=== PATIENT | female | born 1950 | race Caucasian/White ===

== ENCOUNTER 2017-05-04 19:56 | Inpatient (IN) | payer MEDICARE, BC, OTHER ==
[~2017-05-04] VITALS: Ht 162.6 cm; Wt 73.2 kg
[~2017-05-04 19:56] MED LIST: CARV3.12 PO; LEVO75TA3 PO; LISI10TA3 PO; LITH300C2 PO; METF850T PO; OMEP40CA2 PO; SITA50 PO; VENL75XR PO
[2017-05-04 20:07] VITALS: BP 186/84; PULSE 89; TEMP 99.4
--- NOTE | 2017-05-04 20:07 | PD ---
HPI Chief Complaint: psychiatric symptoms Time Seen by Provider: 20:07 Travel History International Travel<30 days: No Contact w/Intl Traveler<30days: No History of Present Illness HPI 66 YO F with PMH of bipolar disorder presents to the ED under Yanes act for psychiatric evaluation. Per the Yanes act paper work the patient made a suicidal statement and was found to have a large quantity of NyQuil and Tylenol PM in her purse. On presentation the patient denies suicidal or homicidal ideation. She states that she had a "bad fight" with her 2 nights ago and left the state [place]. She states that she took the NyQuil and Tylenol PM with her because she had some passive ideas of suicide. She states that while she was staying alone she realizes that "all of my problems are of my own making and I need to confront them." She endorses previous psychiatric hospitalization and previous suicide attempt. She endorses 1 month history of low back pain but denies other somatic complaints on presentation. She denies any attempted OD today, illicit drug use, alcohol use or cigarette smoking. PFSH Past Medical History Anxiety: Yes Depression: Yes Cancer: No Cardiovascular Problems: No High Cholesterol: Yes Diabetes: Yes Endocrine: Yes Genitourinary: No Hepatitis: No Hiatal Hernia: No Hypertension: Yes Immune Disorder: No Musculoskeletal: No Neurologic: No Psychiatric: Yes (depression) Reproductive: No Respiratory: No Migraines: Yes Thyroid Disease: Yes Past Surgical History Abdominal Surgery: No AICD: No Cardiac Surgery: No Ear Surgery: No Endocrine Surgery: No Eye Surgery: No Genitourinary Surgery: No Gynecologic Surgery: Yes Joint Replacement: No Oral Surgery: No Pacemaker: No Thoracic Surgery: No Social History Alcohol Use: No Tobacco Use: No Substance Use: No Allergies-Medications (Allergen,Severity, Reaction): Coded Allergies: No Known Allergies (Unverified , 07/04/15) Reported Meds & Prescriptions Reported Meds & Active Scripts Active [place] Carbonate 300 Mg Cap 300 Mg PO 1 AM 2 HS Metformin (Metformin HCl) 850 Mg Tab 850 Mg PO DAILY With a meal Reported Januvia (Sitagliptin Phosphate) 50 Mg Tab 50 Mg PO DAILY Omeprazole 40 Mg Cap 40 Mg PO DAILY Lisinopril 10 Mg Tab 10 Mg PO TID PRN Levothyroxine (Levothyroxine Sodium) 75 Mcg Tab 75 Mcg PO DAILY Carvedilol 3.125 Mg Tab 3.125 Mg PO BID Review of Systems Except as stated in HPI: all other systems reviewed are Neg Physical Exam Narrative GENERAL: Well-nourished, well-developed pleasant white female in no acute distress. PSYCHIATRIC: No delusional thought processes. No hallucinations. Occasionally tearful. SKIN: Focused skin assessment warm/dry. HEAD: Normocephalic. EYES: No scleral icterus. No injection or drainage. NECK: Supple, trachea midline. No JVD or lymphadenopathy. CARDIOVASCULAR: Regular rate and rhythm without murmurs, gallops, or rubs. RESPIRATORY: Breath sounds clear and equal bilaterally. No accessory muscle use. GASTROINTESTINAL: Abdomen soft, non-tender, nondistended. Active bowel sounds. MUSCULOSKELETAL: No cyanosis, or edema. BACK: Nontender without obvious deformity. No CVA tenderness. Data Data Last Documented VS Vital Signs Date Time Temp Pulse Resp B/P Pulse Ox O2 Delivery O2 Flow Rate FiO2 05/05/17 06:11 69 18 172/79 95 Room Air 05/05/17 02:10 98.3 Orders Complete Blood Count With Diff (05/04/17 20:20) Comprehensive Metabolic Panel (05/04/17 20:20) Urinalysis - C+S If Indicated (05/04/17 20:20) Psych Screen (05/04/17 20:20) Drug Screen, Random Urine (05/04/17 20:20) Alcohol (Ethanol) (05/04/17 20:20) Tylenol (Acetaminophen) (05/04/17 20:36) Salicylates (Aspirin) (05/04/17 20:36) Diet Diabetic (05/05/17 Breakfast) Labs Laboratory Tests Test 05/04/17 05/04/17 20:45 21:00 White Blood Count 7.0 TH/MM3 Red Blood Count 4.54 MIL/MM3 Hemoglobin 13.3 GM/DL Hematocrit 39.6 % Mean Corpuscular Volume 87.1 FL Mean Corpuscular Hemoglobin 29.3 PG Mean Corpuscular Hemoglobin 33.7 % Concent Red Cell Distribution Width 13.4 % Platelet Count 224 TH/MM3 Mean Platelet Volume 9.3 FL Neutrophils (%) (Auto) 52.1 % Lymphocytes (%) (Auto) 37.1 % Monocytes (%) (Auto) 7.3 % Eosinophils (%) (Auto) 2.2 % Basophils (%) (Auto) 1.3 % Neutrophils # (Auto) 3.6 TH/MM3 Lymphocytes # (Auto) 2.6 TH/MM3 Monocytes # (Auto) 0.5 TH/MM3 Eosinophils # (Auto) 0.2 TH/MM3 Basophils # (Auto) 0.1 TH/MM3 CBC Comment DIFF FINAL Differential Comment Sodium Level 139 MEQ/L Potassium Level 3.3 MEQ/L Chloride Level 105 MEQ/L Carbon Dioxide Level 26.5 MEQ/L Anion Gap 8 MEQ/L Blood Urea Nitrogen 13 MG/DL Creatinine 0.92 MG/DL Estimat Glomerular Filtration 61 ML/MIN Rate Random Glucose 238 MG/DL Calcium Level 9.0 MG/DL Total Bilirubin 0.3 MG/DL Aspartate Amino Transf 39 U/L (AST/SGOT) Alanine Aminotransferase 72 U/L (ALT/SGPT) Alkaline Phosphatase 61 U/L Total Protein 7.3 GM/DL Albumin 3.7 GM/DL Acetaminophen Level LESS THAN 2.0 MCG/ML Ethyl Alcohol Level LESS THAN 3 MG/DL Salicylates Level LESS THAN 1.7 MG/DL Urine Color YELLOW Urine Turbidity CLEAR Urine pH 5.5 Urine Specific [place] 1.015 Urine Protein TRACE mg/dL Urine Glucose (UA) 300 mg/dL Urine Ketones NEG mg/dL Urine Occult Blood TRACE Urine Nitrite NEG Urine Bilirubin NEG Urine Urobilinogen LESS THAN 2.0 MG/DL Urine Leukocyte Esterase SMALL Urine RBC 2 /hpf Urine WBC 4 /hpf Urine Squamous Epithelial <1 /hpf Cells Microscopic Urinalysis Comment CULT NOT INDICATED Urine Opiates Screen NEG Urine Barbiturates Screen NEG Urine Amphetamines Screen NEG Urine Benzodiazepines Screen NEG Urine Cocaine Screen NEG Urine Cannabinoids Screen NEG MDM Medical Decision Making Medical Screen Exam Complete: Yes Emergency Medical Condition: Yes Differential Diagnosis Adjustment disorder versus anxiety versus bipolar versus depression versus dementia versus electrolyte disorder versus malingering versus mood disorder versus ODD versus psychosis versus PTSD versus schizophrenia versus schizoaffective disorder versus substance-induced mood disorder versus other Narrative Course 66 YO F with PMH of bipolar disorder presents to the ED under [employer] act for psychiatric evaluation. Per the [employer] act paper work the patient made a suicidal statement and was found to have a large quantity of NyQuil and Tylenol PM in her purse. On presentation the patient denies suicidal or homicidal ideation. She states that she had a "bad fight" with her 2 nights ago and left the state Hotel. She states that she took the NyQuil and Tylenol PM with her because she had some passive ideas of suicide. She states that while she was staying alone she realizes that "all of my problems are of my own making and I need to confront them." She endorses previous psychiatric hospitalization and previous suicide attempt. She endorses 1 month history of low back pain but denies other somatic complaints on presentation. She denies any attempted OD today, illicit drug use, alcohol use or cigarette smoking. Vitals reviewed. Physical exam unremarkable. Reviewed the patient's record and she has previous suicide attempts by acetaminophen. Yanes act to stand. Lab work is unremarkable. The patient is medically cleared for psychiatric evaluation. Mirian Lucas May 04, 2017 20:07
[2017-05-04 21:13] LABS: AUTOMATED NEUTROPHIL # 3.6 TH/MM3 (1.8-7.7); BASOPHIL # 0.1 TH/MM3 (0-0.2); BASOPHIL % 1.3 % (0.0-2.0); EOSINOPHIL # 0.2 TH/MM3 (0-0.4); EOSINOPHIL % 2.2 % (0.0-4.0); HEMATOCRIT 39.6 % (35.0-46.0); HEMO FLAGS DIFF FINAL; LYMPH % 37.1 % (9.0-44.0); LYMPHOCYTE # 2.6 TH/MM3 (1.0-4.8); MEAN CELL VOLUME 87.1 FL (80.0-100.0); MEAN CORPUSCULAR HEMOGLOBIN 29.3 PG (27.0-34.0); MEAN CORPUSCULAR HGB CONC 33.7 % (32.0-36.0); MONO % 7.3 % (0.0-8.0); NEUT % 52.1 % (16.0-70.0); PLATELET COUNT 224 TH/MM3 (150-450); RED BLOOD COUNT 4.54 MIL/MM3 (4.00-5.30); RED CELL DISTRIBUTION WIDTH 13.4 % (11.6-17.2)
[2017-05-04 21:26] LABS: ALT (GPT) 72 U/L (10-53); ANION GAP 8 MEQ/L (5-15); AST (GOT) 39 U/L (15-37); BICARBONATE 26.5 MEQ/L (21.0-32.0); BLOOD UREA NITROGEN 13 MG/DL (7-18); CHLORIDE 105 MEQ/L (98-107); GLOMERULAR FILTRATION RATE 61 ML/MIN (>89); POTASSIUM 3.3 MEQ/L (3.5-5.1); SODIUM (NA) 139 MEQ/L (136-145)
[2017-05-04 21:29] LABS: ALKALINE PHOSPHATASE 61 U/L (45-117); TOTAL BILIRUBIN ADULT 0.3 MG/DL (0.2-1.0)
[2017-05-04 21:41] LABS: BLOOD, URINE TRACE (NEG); GLUCOSE,URINE 300 mg/dL (NEG); KETONE, URINE NEG (NEG); NITRITE,URINE NEG (NEG); PH, URINE 5.5 (5.0-8.5); SQUAMOUS EPITHELIAL CELL URINE <1 /hpf (0-5); URINE COLOR YELLOW (YELLW/STRAW)
[2017-05-04 21:44] LABS: COMMENT (UR) CULT NOT INDICATED; CULTURE IF INDICATED CULT NOT INDICATED
[2017-05-04 21:50] LABS: AMPHETAMINE, URINE NEG (NEG); BARBITURATES, URINE NEG (NEG); COCAINE, URINE NEG (NEG)
[2017-05-04 22:59] VITALS: BP 176/81; PULSE 79; RESP 18; O2SAT 97
[2017-05-05 02:10] VITALS: BP 175/79; PULSE 76; RESP 18; TEMP 98.3; O2SAT 96
[2017-05-05 06:11] VITALS: BP 172/79; PULSE 69; RESP 18; O2SAT 95
[2017-05-05] MEDS ORDERED: LORazepam 1 MG TAB PO PRN (09:45)
[2017-05-05] MEDS ORDERED: ALUMINUM/MAGNESIUM/SIMETH 30 ML CUP PO PRN (09:45)
[2017-05-05] MEDS ORDERED: ACETAMINOPHEN 325 MG TAB PO PRN (09:45)
[2017-05-05] MEDS ORDERED: LORazepam 0.5 MG TAB PO PRN (09:45)
[2017-05-05] MEDS ORDERED: LISINOPRIL 10 MG TAB PO PRN (09:45)
[2017-05-05] MEDS ORDERED: MAGNESIUM HYDROXIDE SUSP 30 ML CUP PO PRN (09:45)
[2017-05-05] MEDS ORDERED: LORazepam 2 MG/ML VIAL IM PRN ×2 (09:45)
--- NOTE | 2017-05-05 09:52 | HHI.HP ---
Provisional Diagnosis Admission Date Bailey I. Major depression, recurrent Certification of Person's Competence To Provide Express and Informed Consent I have personally examined Bev Damon , a person being served at [facility] on, May 05, 2017 09:41. Express and informed consent means consent voluntarily given in writing, by a competent person, after sufficient explanation and disclosure of the subject matter involved to enable the person to make a knowing and willful decision without any element of force, fraud, deceit, duress, or other form of constraint or coercion. This person is 18 years of age or older, is not now known to be incompetent to consent to treatment with a guardian advocate, and does not have a health care surrogate or proxy currently making medical treatment decisions. I have found this person to be one of the following: [x] Competent to provide express and informed consent, as defined above, for voluntary admission to this facility and is competent to provide express and informed consent for treatment. He/she has the consistent capacity to make well reasoned, willful, and knowing decisions concerning his or her medical or mental health treatment. The person fully and consistently understands the purpose of the admission for examination/placement and is fully capable of personally exercising all rights assured [place] Incompetent to provide express and informed consent to voluntary admission, and this is incompetent to provide express and informed consent to treatment. The person must be transferred to involuntary status and a petition for a guardian advocate filed with the Circuit Court. [] Refusing to provide express and informed consent to voluntary admission but is competent to provide express and informed consent for treatment. The person must be discharged or transferred to involuntary status. Form shall be completed within 24 hours of a person's arrival at the receiving facility and filed in the clinical record of each person: 1. Admitted on a voluntary basis 2. Permitted to provide express and informed consent to his/her own treatment 3. Allowed to transfer from involuntary to voluntary status 4. Prior to permitting a person to consent to his or her own treatment after having been previously found incompetent to consent to treatment. History of Present Illness Capacity: Has Capacity HPI This is a 67-year-old female with multiyear history of depression and previous suicide attempts, currently Yanes acted for suicidal ideation and plan. Patient reportedly got into an argument with her several days ago. She checked into a hotel room for the last 2-3 days with a bottle of NyQuil and a significant quantity of Tylenol PM. She admitted to the emergency room physician that she had been contemplating suicide. When questioned about this by this physician, the patient simply answered "problems". She is experiencing intermittent suicidal ideation at this moment but agrees to intermittent thoughts of killing herself on a chronic basis. She also describes multiple symptoms of depression, including depressed mood, anhedonia, social withdrawal, diminished energy, diminished self-esteem, difficulty sleeping, feelings of hopelessness and helplessness, as well as suicidal thoughts. This physician spoke to Dr. Grullon, who has treated the patient in the past and he recommended inpatient hospitalization. This physician agrees, the patient has to many risk factors to ignore her recent behavior and previous behavior. Review of Systems Except as stated in HPI: all other systems reviewed are Neg Past Psych History Psychological trauma history Denied for psychological trauma. Patient has been admitted 4 previous suicide attempts and treated on an outpatient basis. Violence risk - others (6 mos) Minimal Violence risk - self (6 mos) High Substance Abuse History Drugs/Alcohol past 12 months Denied for alcohol abuse and drug abuse. Past Family Social History Coded Allergies: No Known Allergies (Unverified , 07/04/15) Active Scripts [place] Carbonate 300 Mg Kom450 Mg PO 1 am 2 hs #270 CAP Ref 0 Prov:Joe Grullon MD 09/24/16 Metformin 850 Mg Smg519 Mg PO DAILY #30 TAB Ref 0 With a meal Prov:Joe Grullon MD 08/13/16 Reported Medications Sitagliptin (Januvia)50 Mg Tab50 Mg PO DAILY #30 TAB Ref 0 08/13/16 Omeprazole 40 Mg Cap40 Mg PO DAILY #30 CAP Ref 0 08/13/16 Lisinopril 10 Mg Tab10 Mg PO TID PRN #90 TAB Ref 0 08/13/16 Levothyroxine 75 Mcg Tab75 Mcg PO DAILY #30 TAB Ref 0 08/13/16 Carvedilol 3.125 Mg Tab3.125 Mg PO BID #60 TAB Ref 0 08/13/16 Discontinued Scripts Venlafaxine ER 24 HR (Effexor XR 24 HR)75 Mg Cap75 Mg PO DAILY #90 CAP Ref 0 Prov:Joe Grullon MD 09/24/16 Current Medications Medications (Trade) Dose Ordered Sig/Kristi Route Start Time Stop Time Status Last Admin (Ativan) 1 mg Q6H PRN PO 05/05/17 09:45 UNV (Ativan Inj) 1 mg Q6H PRN IM 05/05/17 09:45 UNV (Ativan) 0.5 mg Q12H PRN PO 05/05/17 09:45 UNV (Ativan Inj) 0.5 mg Q12H PRN IM 05/05/17 09:45 UNV (Tylenol) 650 mg Q4H PRN PO 05/05/17 09:45 UNV (Milk Of Magnesia Liq) 30 ml DAILY PRN PO 05/05/17 09:45 UNV (Mag-Al Plus Susp Liq) 30 ml Q6H PRN PO 05/05/17 09:45 UNV (Coreg) 3.125 mg BID PO 05/05/17 21:00 UNV (Synthroid) 75 mcg DAILY PO 05/05/17 09:45 UNV (Prinivil) 10 mg TID PRN PO 05/05/17 09:45 UNV ([place] Carbonate) 300 mg BIDPC PO 05/05/17 18:00 UNV (Glucophage) 850 mg DAILY PO 05/05/17 09:45 UNV (Januvia) 50 mg DAILY PO 05/05/17 09:45 UNV Non-Formulary Medication 40 mg DAILY PO 05/05/17 09:45 UNV Family History Positive for mood and anxiety disorders. Social History for approximately 25 years. Many marital conflicts. not terribly supportive. Patient is not employed. Denies a history of alcoholism or drug abuse. Patient's Strengths (min. 2) Verbal and has access to healthcare. Physical Exam GENERAL: SKIN: Warm and dry. HEAD: Normocephalic. EYES: No scleral icterus. No injection or drainage. NECK: Supple, trachea midline. No JVD or lymphadenopathy. CARDIOVASCULAR: Regular rate and rhythm without murmurs, gallops, or rubs. RESPIRATORY: Breath sounds equal bilaterally. No accessory muscle use. GASTROINTESTINAL: Abdomen soft, non-tender, nondistended. MUSCULOSKELETAL: No cyanosis, or edema. BACK: Nontender without obvious deformity. No CVA tenderness. Vital Signs Vital Signs Date Time Temp Pulse Resp B/P Pulse Ox O2 Delivery O2 Flow Rate FiO2 05/05/17 06:11 69 18 172/79 95 Room Air 05/05/17 02:10 98.3 Mental Status Examination Speech: Unremarkable Orientation: x3 Memory: Unremarkable Thought Process: Organized, Goal Directed Thought Content: Unremarkable Hallucination Type: None Attention and Concentration: Good Suicidal Ideation: Yes Previous Suicide Attempts: Yes Homicidal Ideation: No Previous Homicide Attempts: No Insight: Fair Judgment: WNL Affect: Anxious, Sad Mood: Sad, Anxious Motor Activity: Normal gait Assessment & Plan Problem List: (1) Major depression, recurrent, chronic ICD Code: F33.9 Assessment & Plan Estimated LOS: days 67-year-old female with history of mood disorder and previous suicide attempt as well as previous outpatient psychiatric treatment with Dr. Grullon. This physician called Dr. Grullon and both he and I agree the patient is at high risk for self-harm. She is therefore being admitted for evaluation and treatment. Patient will receive a CBC and comprehensive metabolic profile to determine if any infectious or metabolic process is causing or contributing to her current depression. This physician notes she has a history of thyroid disease and will both check her TSH and call a hospital consult to evaluate her thyroid and cardiac status as this too may affect her mood or be affected by psychotropic medicines. Additionally, we will check her vitamin B-12 and vitamin D levels to ascertain if they are low and contributing to her depression. Furthermore, because of her age, we are obtaining an EKG and a lipid profile to ascertain her tolerance for psychotropic medicines and cardiac status. Vander levels will be obtained. This physician spoke with the patient's nurse regarding her recent behavior. Case management will be involved to gather more information and provide appropriate disposition planning. Jose A Singh MD May 05, 2017 09:51
[2017-05-05 11:53] VITALS: BP 160/90; PULSE 76; RESP 18; O2SAT 97
[2017-05-05] MEDS: metFORMIN HCL 850 MG TAB PO SCH (11:55)
[2017-05-05] MEDS: LEVOTHYROXINE SODIUM 75 MCG TAB PO SCH (11:55)
[2017-05-05] MEDS: PANTOPRAZOLE SOD 40 MG DELAYED RELEASE TAB PO SCH (11:55)
[2017-05-05 13:00] VITALS: BP 201/89; PULSE 84; RESP 18; TEMP 97.7; O2SAT 98
--- NOTE | 2017-05-05 15:47 | PD.CONS ---
HPI Service [facility] Hospitalists Consult Requested By Samantha Naranjo M.D. Reason for Consult Medical management of thyroid and cardiac disease Primary Care Physician Juan Luevano DO Diagnoses: History of Present Illness Written by Jaya Jorge, acting as scribe for Dr. Babatunde Blanton on 05/05/17 at 15: 32. Mrs. Damon is 67 yo with history of cardiac disease, hypertension, diabetes ( type II), hyperlipidemia, hypothyroidism, liver disease ("unknown origin"), and kidney stones. Per the medical record, Mrs. Damon came to [facility] for evaluation due to suicidal ideation with plan to ingest NyQuil and Tylenol PM. Records indicate Mrs. Damon has had issues with both depression and suicidal ideation with two previous suicide attempts noted (June 04 and 2012).. As such, she was placed under a Yanes Act and admitted to the inpatient psychiatric service. At time of interview, Mrs. Damon was seen in the day room on that service. She denied fever, cough, shortness of breath, abdominal pain, bowel or bladder issues, or difficulty ambulating. She did report having a "panic attack about an hour" prior to the interview and had "chest pain" that moved around her chest. She denied associated diaphoresis or nausea. A 10 pt ROS was completed and,except as noted above, was negative. The hospitalist team was consulted by Dr. Singh to medically manage pt's thyroid and cardiac issues. Review of Systems Except as stated in HPI: all other systems reviewed are Neg Past Family Social History Allergies: Coded Allergies: No Known Allergies (Unverified , 07/04/15) Past Medical History cardiac disease, diabetes (type II) hyperlipidemia hypertension hypothyroidism "kidney stones" liver disease ("unknown origin"). 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 Reported Medications Reported Meds & Active Scripts Active [place] Carbonate 300 Mg Cap 300 Mg PO 1 AM 2 HS Metformin (Metformin HCl) 850 Mg Tab 850 Mg PO DAILY With a meal Reported Januvia (Sitagliptin Phosphate) 50 Mg Tab 50 Mg PO DAILY Omeprazole 40 Mg Cap 40 Mg PO DAILY Lisinopril 10 Mg Tab 10 Mg PO TID PRN Levothyroxine (Levothyroxine Sodium) 75 Mcg Tab 75 Mcg PO DAILY Carvedilol 3.125 Mg Tab 3.125 Mg PO BID Active Ordered Medications Current Medications Medications (Trade) Dose Ordered Sig/Kristi Route Start Time Stop Time Status Last Admin (Ativan) 0.5 mg Q12H PRN PO 05/05/17 09:45 (Ativan Inj) 0.5 mg Q12H PRN IM 05/05/17 09:45 (Tylenol) 650 mg Q4H PRN PO 05/05/17 09:45 (Milk Of Magnesia Liq) 30 ml DAILY PRN PO 05/05/17 09:45 (Mag-Al Plus Susp Liq) 30 ml Q6H PRN PO 05/05/17 09:45 (Coreg) 3.125 mg BID PO 05/05/17 21:00 (Synthroid) 75 mcg DAILY@06 PO 05/05/17 09:45 05/05/17 11:55 (Prinivil) 10 mg TID PRN PO 05/05/17 09:45 ([place] Carbonate) 300 mg BIDPC PO 05/05/17 18:00 (Glucophage) 850 mg DAILY PO 05/05/17 09:45 05/05/17 11:55 (Januvia) 50 mg DAILY PO 05/05/17 09:45 05/05/17 11:55 (Protonix) 40 mg DAILY PO 05/05/17 09:45 05/05/17 11:55 Family History Lung cancer: father, paternal uncles (x2) paternal aunt. Unknown cancer: brother. Mother: Diabetes (type I), "early onset" Parkinson's Disease, arthritis Social History Pt denied life long nicotine use. Occasional alcohol use was reported. Pt denied illicit/recreational drug use. Physical Exam Vital Signs Vital Signs Date Time Temp Pulse Resp B/P Pulse Ox O2 Delivery O2 Flow Rate FiO2 05/05/17 11:53 76 18 160/90 97 Room Air 05/05/17 06:11 69 18 172/79 95 Room Air 05/05/17 02:10 98.3 76 18 175/79 96 Room Air 05/04/17 22:59 79 18 176/81 97 Room Air 05/04/17 20:07 99.4 89 186/84 Physical Exam GENERAL: This is a well-nourished, well-developed patient, in no apparent distress encountered in the day room of the psychiatric service. SKIN: No rashes, ecchymoses or lesions. Cool and dry. varicose veins noted in both legs. HEAD: Atraumatic. Normocephalic. EYES: Pupils equal round and reactive. Extraocular motions intact. No scleral icterus. No injection or drainage. ENT: Nose without bleeding or purulent drainage. Airway patent. NECK: Trachea midline. No lymphadenopathy. Supple and nontender. CARDIOVASCULAR: Regular rate and rhythm without murmurs, gallops, or rubs. RESPIRATORY: Clear to auscultation. Breath sounds equal bilaterally. No wheezes , rales, or rhonchi. GASTROINTESTINAL: Abdomen soft, non-tender, nondistended. No hepato- splenomegaly or guarding. MUSCULOSKELETAL: Extremities without clubbing, cyanosis, or edema. No joint tenderness, effusion, or edema noted. NEUROLOGICAL: Awake and alert. Cranial nerves II through XII intact. Motor and sensory grossly within normal limits. Five out of 5 muscle strength in all muscle groups. Speech was clear and fluent. Laboratory Laboratory Tests Test 05/04/17 05/04/17 20:45 21:00 White Blood Count 7.0 Red Blood Count 4.54 Hemoglobin 13.3 Hematocrit 39.6 Mean Corpuscular Volume 87.1 Mean Corpuscular Hemoglobin 29.3 Mean Corpuscular Hemoglobin 33.7 Concent Red Cell Distribution Width 13.4 Platelet Count 224 Mean Platelet Volume 9.3 Neutrophils (%) (Auto) 52.1 Lymphocytes (%) (Auto) 37.1 Monocytes (%) (Auto) 7.3 Eosinophils (%) (Auto) 2.2 Basophils (%) (Auto) 1.3 Neutrophils # (Auto) 3.6 Lymphocytes # (Auto) 2.6 Monocytes # (Auto) 0.5 Eosinophils # (Auto) 0.2 Basophils # (Auto) 0.1 CBC Comment DIFF FINAL Differential Comment Sodium Level 139 Potassium Level 3.3 Chloride Level 105 Carbon Dioxide Level 26.5 Anion Gap 8 Blood Urea Nitrogen 13 Creatinine 0.92 Estimat Glomerular Filtration 61 Rate Random Glucose 238 Calcium Level 9.0 Total Bilirubin 0.3 Aspartate Amino Transf 39 (AST/SGOT) Alanine Aminotransferase 72 (ALT/SGPT) Alkaline Phosphatase 61 Total Protein 7.3 Albumin 3.7 Acetaminophen Level LESS THAN 2.0 Ethyl Alcohol Level LESS THAN 3 Salicylates Level LESS THAN 1.7 Urine Color YELLOW Urine Turbidity CLEAR Urine pH 5.5 Urine Specific [place] 1.015 Urine Protein TRACE Urine Glucose (UA) 300 Urine Ketones NEG Urine Occult Blood TRACE Urine Nitrite NEG Urine Bilirubin NEG Urine Urobilinogen LESS THAN 2.0 Urine Leukocyte Esterase SMALL Urine RBC 2 Urine WBC 4 Urine Squamous Epithelial <1 Cells Microscopic Urinalysis Comment CULT NOT INDICATED Urine Opiates Screen NEG Urine Barbiturates Screen NEG Urine Amphetamines Screen NEG Urine Benzodiazepines Screen NEG Urine Cocaine Screen NEG Urine Cannabinoids Screen NEG Result Diagram: 05/04/17204405/04/172044 Assessment and Plan Assessment and Plan Mrs. Damon is 67 yo with history of cardiac disease, hypertension, diabetes ( type II), hyperlipidemia, hypothyroidism, liver disease ("unknown origin"), and kidney stones. Major depression, recurrent -Treatment per primary team. Cardiac disease Hypertension -Continue carvedilol 3.125 mg BID Diabetes -Sitagliptin 50 mg daily -Metformin 850 mg daily -Hemoglobin A1c pending Hyperlipidemia -Lipid panel pending -Statin not noted as home medication. Hypothyroidism -TSH pending -Continue home regimen of 75 mcg/day DVT prophylaxis: Pt ambulatory. Discussed Condition With Pt and Dr. Singh. Jaya Jorge Jr. May 05, 2017 15:47
[2017-05-05 17:21] VITALS: BP 149/91; PULSE 85; RESP 16; TEMP 97; O2SAT 97
[2017-05-05] MEDS: LITHIUM CARBONATE 300 MG CAP PO SCH (18:00)
[2017-05-05] MEDS: CARVEDILOL 3.125 MG TAB PO SCH (21:00)
[2017-05-06] MEDS: LEVOTHYROXINE SODIUM 75 MCG TAB PO SCH (05:19)
[2017-05-06 05:26] VITALS: BP 141/83; PULSE 89; RESP 18; TEMP 97.4; O2SAT 97
[2017-05-06 08:43] LABS: AUTOMATED NEUTROPHIL # 3.8 TH/MM3 (1.8-7.7); BASOPHIL # 0.1 TH/MM3 (0-0.2); BASOPHIL % 1.4 % (0.0-2.0); EOSINOPHIL # 0.4 TH/MM3 (0-0.4); EOSINOPHIL % 5.2 % (0.0-4.0); HEMATOCRIT 41.1 % (35.0-46.0); HEMO FLAGS DIFF FINAL; LYMPH % 33.7 % (9.0-44.0); LYMPHOCYTE # 2.4 TH/MM3 (1.0-4.8); MEAN CELL VOLUME 87.2 FL (80.0-100.0); MEAN CORPUSCULAR HEMOGLOBIN 29.9 PG (27.0-34.0); MEAN CORPUSCULAR HGB CONC 34.3 % (32.0-36.0); MONO % 7.1 % (0.0-8.0); NEUT % 52.6 % (16.0-70.0); PLATELET COUNT 227 TH/MM3 (150-450); RED BLOOD COUNT 4.71 MIL/MM3 (4.00-5.30); RED CELL DISTRIBUTION WIDTH 13.6 % (11.6-17.2); WHITE BLOOD COUNT 7.2 TH/MM3 (4.0-11.0)
[2017-05-06] MEDS: LITHIUM CARBONATE 300 MG CAP PO SCH (09:05)
[2017-05-06] MEDS: PANTOPRAZOLE SOD 40 MG DELAYED RELEASE TAB PO SCH (09:05)
[2017-05-06] MEDS: metFORMIN HCL 850 MG TAB PO SCH (09:05)
[2017-05-06] MEDS: CARVEDILOL 3.125 MG TAB PO SCH (09:05)
[2017-05-06 09:09] LABS: ANION GAP 8 MEQ/L (5-15); AST (GOT) 30 U/L (15-37); BLOOD UREA NITROGEN 14 MG/DL (7-18); CHLORIDE 107 MEQ/L (98-107); GLOMERULAR FILTRATION RATE 79 ML/MIN (>89); SODIUM (NA) 140 MEQ/L (136-145)
[2017-05-06 09:37] LABS: ALKALINE PHOSPHATASE 58 U/L (45-117); ALT (GPT) 64 U/L (10-53); HDL CHOLESTEROL 37.3 MG/DL (40.0-60.0); LDL CHOLESTEROL 180 MG/DL (0-99); TOTAL BILIRUBIN ADULT 0.3 MG/DL (0.2-1.0)
[2017-05-06] MEDS ORDERED: PNEUMOCOCCAL POLYVALENT INJ 25 MCG/0.5 ML SYR IM ONE (10:00)
[2017-05-06] MEDS ORDERED: LITH300C2 PO (13:43)
[2017-05-06] MEDS ORDERED: VENL75XR PO (13:47)
--- NOTE | 2017-05-06 14:07 | HHI.DS ---
Psychiatry Discharge Summary Inpatient Psychiatric care?: Yes Advance Directive: No Reason Not Provided: Due to Patient Condition Mental Health AdvanceDirective: No Health Care Proxy: No Admission Admission Date May 05, 2017 at 09:33 Admission Diagnosis: (1) Bipolar disorder ICD Code: F31.9 Brief History This is a 67-year-old female with multiyear history of depression and previous suicide attempts, currently Yanes acted for suicidal ideation and plan. Patient reportedly got into an argument with her several days ago. She checked into a hotel room for the last 2-3 days with a bottle of NyQuil and a significant quantity of Tylenol PM. She admitted to the emergency room physician that she had been contemplating suicide. When questioned about this by this physician, the patient simply answered "problems". She is experiencing intermittent suicidal ideation at this moment but agrees to intermittent thoughts of killing herself on a chronic basis. She also describes multiple symptoms of depression, including depressed mood, anhedonia, social withdrawal, diminished energy, diminished self-esteem, difficulty sleeping, feelings of hopelessness and helplessness, as well as suicidal thoughts. This physician spoke to Dr. Grullon, who has treated the patient in the past and he recommended inpatient hospitalization. This physician agrees, the patient has to many risk factors to ignore her recent behavior and previous behavior. Tobacco Use In Past 30 Days: No Tobacco Past 30 Days Alcohol Use: Monthly or Less Hospital Course Patient seen in her room with medical student Kristen. [facility]. At that time she was given 3 months medication including 3 months of Effexor XR 75 mg daily. It appears she ran out of the Effexor. She stated she felt well and did not wish to continue it. After another month or 2 she started feeling more depressed. This led to increased depression and sadness mood lability and decreased coping skills. Prior to admission patient was having a "date" night with her . They did have a couple of drinks and then got into an argument. Patient left the house and went to a hotel. She spent the night. It appears she did have some vague suicidal ideation with a vague plan to take overdose of [id number] medication she brought with her. [facility] she changed her mind about this and this went to sleep. During that interval her called the police worried about her being on all night. Leading to this hospitalization. At the present time patient sitting quietly in her room, she states she's had good conversation with her she does acknowledge getting a little more feisty and irritable when she has a few drinks and she and her start talking about taboo type items such as their sex life. Management today patient denies suicidality homicidality voices or visions. Is acknowledging need to get back on her Effexor. She acknowledges that benefit has with her mood also. Thus at the present time patient does not meet Yanes criteria. Rule out the patient be discharged herself we'll refill her lithium and her Effexor. We need to make a follow-up appointment with her either with [facility] kristan or with resources within her insurance panel also strong recommendation for her absolute sobriety Results Blood Pressure 141 / 83 Vital Signs Date Time Temp Pulse Resp B/P Pulse Ox O2 Delivery O2 Flow Rate FiO2 05/06/17 05:26 97.4 89 18 141/83 97 05/05/17 11:53 Room Air Laboratory Tests Test 05/04/17 05/04/17 05/06/17 20:45 21:00 07:38 Potassium Level 3.3 MEQ/L (3.5-5.1) Estimat Glomerular Filtration 61 ML/MIN (>89) 79 ML/MIN (>89) Rate Random Glucose 238 MG/DL 162 MG/DL (74-106) (74-106) Aspartate Amino Transf 39 U/L (15-37) (AST/SGOT) Alanine Aminotransferase 72 U/L (10-53) 64 U/L (10-53) (ALT/SGPT) Acetaminophen Level LESS THAN 2.0 MCG/ML (10.0-30.0) Salicylates Level LESS THAN 1.7 MG/DL (2.8-20.0) Urine Glucose (UA) 300 mg/dL (NEG) Urine Occult Blood TRACE (NEG) Urine Leukocyte Esterase SMALL (NEG) Eosinophils (%) (Auto) 5.2 % (0.0-4.0) Cholesterol Level 244 MG/DL (120-200) LDL Cholesterol 180 MG/DL (0-99) HDL Cholesterol 37.3 MG/DL (40.0-60.0) 25-Hydroxy Vitamin D Total 10.2 ng/ML (30-100) Thyroid Stimulating Hormone 3.810 uIU/ML 3rd Gen (0.358-3.740) Laboratory Results Test 05/06/17 07:38 Triglycerides Level 133 MG/DL (42-150) Cholesterol Level 244 MG/DL (120-200) LDL Cholesterol 180 MG/DL (0-99) HDL Cholesterol 37.3 MG/DL (40.0-60.0) Summary of Procedures None done Pending results at discharge: No Medications # of Antipsychotic meds at D/C: 0 Approp Antipsych med options 1 - Minimum of three failed multiple trials of monotherapy. 2 - Documented plan to taper to monotherapy due to previous use of multiple meds OR cross-taper in progress at D/C. 3 - Documentation of augmentation of Clozapine. 4 - Justification other than those listed in allowable values 1-3, document here : Discharge Discharge Date: May 06, 2017 Discharge Diagnosis: (1) Bipolar disorder ICD Code: F31.9 Mental Status Exam at Disch Alert oriented white female calm cooperative. She is normally active. Patient mood is euthymic to mildly irritable good range intensity of her affect. Speech rate and rhythm within normal limits though no formal thought disorders. No auditory or visual hallucinations no delusions. Insight and judgment is poor to fair. Cognition grossly intact Pt Condition on Discharge: Stable Discharge Disposition: Discharge Home Discharge Instructions Diet Instructions: As Tolerated, No Restrictions Activities you can perform: Regular-No Restrictions Scheduled Appointment: [facility] Sandoval (or other resources in community that is improved with her insurance panel) Discharge Time > 30 minutes Discharge/Advance Care Plan Health Problems: (1) Major depression, recurrent, chronic Goals to promote your health * To prevent worsening of your condition and complications * To maintain your health at the optimal level Directions to meet your goals Take your medications as prescribed Follow your dietary instruction Follow activity as directed Keep your appointments as scheduled Take your immunizations and boosters as scheduled If your symptoms worsen call your PCP, if no PCP go to Urgent Care Center or Emergency Room For 19/04 questions related to your inpatient stay or results of tests pending at discharge, please contact Dr. Joe Grullon at Smoking is Dangerous to Your Health. Avoid second hand smoking Problem Qualifiers (1) Bipolar disorder: Qualified Code: F31.75 - Bipolar disorder, in partial remission, most recent episode depressed Joe Grullon MD May 06, 2017 14:07
[2017-05-06 16:27] LABS: HEMOGLOBIN A1a 0.9 %; HEMOGLOBIN A1b 2.4 %; HEMOGLOBIN LA1C 2.4 %; HEMOGLOBIN P3 4.1 %
--- NOTE | 2017-05-07 15:12 | EKG ---
Date Performed: 05/06/2017 Time Performed: 09:46:55 PTAGE: 67 years EKG: Sinus rhythm Compared to prior tracing no significant change NORMAL ECG PREVIOUS TRACING : 06/04/2013 07.46 DOCTOR: Jose A Barrett Interpretating Date/Time 05/07/2017 15:11:56
== END 2017-05-06 16:20 | disposition home or self-care (01) | DRG 885 ==
LOC: NEPD 19:56 → NEDA 05-05 09:33 → H260 05-05 12:45
PROVIDERS: ADMIT Psychiatry & Neurology Psychiatry; ATTEND Psychiatry & Neurology Psychiatry
DX: F31.9 Bipolar disorder, unspecified (principal); E11.9 Type 2 diabetes mellitus without complications; Z79.84 Long term (current) use of oral hypoglycemic drugs; I10 Essential (primary) hypertension; E78.5 Hyperlipidemia, unspecified; E03.9 Hypothyroidism, unspecified; K76.9 Liver disease, unspecified
CPT/HCPCS: 80053; 80061; 80307; 81001; 82306; 82607; 83036; 84443; 85025; 93005